=== PATIENT | male | born 1990 | race Caucasian/White ===

== ENCOUNTER 2016-12-27 21:55 | Emergency (ER) | payer OTHER ==
[~2016-12-27] VITALS: Ht 175.3 cm; Wt 95.2 kg
[~2016-12-27 21:55] MED LIST: NORCO 5/3251 TABLET PO
[2016-12-27 23:00] LABS: HEMATOCRIT 46.7 % (38.0-50.0); MCH 30.1 PG (29.0-34.0); MCHC 35.1 G/DL (30.0-36.0); MCV 85.7 FL (86-99); MEAN PLAT.VOLUME 10.3 uM^3 (9.0-12.4); PLATELET COUNT 221 K/uL (156-360); RBC DIS.WIDTH-CV 12.8 % (11.8-14.6); RBC DIS.WIDTH-SD 39.3 % (39-53); RED BLOOD COUNT 5.45 M/uL (4.00-5.50); WHITE BLOOD COUNT 6.4 K/uL (4.1-10.2)
[2016-12-27 23:10] LABS: CHLORIDE 106 mEq/L (99-109); SODIUM 140 mEq/L (136-147)
[2016-12-27 23:12] LABS: GLUCOSE 91 mg/dL (70-99)
[2016-12-27 23:13] LABS: ANION GAP 10 MEQ/L (2-14)
[2016-12-27 23:14] LABS: TOTAL BILIRUBIN 0.4 mg/dL (0.0-1.0)
[2016-12-27 23:16] LABS: ALKALINE PHOSPHATASE 97 IU/L (3-129); GFR ESTIMATE (CALCULATED) > 59 mL/min/
[2016-12-27 23:17] LABS: UREA NITROGEN (BUN) 13 mg/dL (9-23)
[2016-12-27 23:22] LABS: ADD MIUA? NO; BILIRUBIN NEGATIVE; BLOOD NEGATIVE; COLOR YELLOW ((YELLOW)); GLUCOSE (STRIP) NEGATIVE; KETONES NEGATIVE; LEUKOCYTES NEGATIVE; NITRITE NEGATIVE; PROTEIN (STRIP) NEGATIVE; SPECIFIC GRAVITY 1.018 (1.000-1.030); UCUL ADDED? NO; UROBILINOGEN 0.2 MG/DL (0.2-1.0)
[2016-12-28] MEDS ORDERED: CIPRO500 MG PO (01:07)
[2016-12-28] MEDS ORDERED: MOTRIN600 MG PO (01:07)
[2016-12-28 01:32] VITALS: BP 150/93
== END 2016-12-28 01:45 | disposition home or self-care (01) ==
LOC: EME 21:55
DX: K63.89 Other specified diseases of intestine (principal)
CPT/HCPCS: 74177; 80053; 81003; 85027; 99281; 99285; J3010; J7040